=== PATIENT | female | born 1960 | race African-American/Black ===

== ENCOUNTER 2018-06-04 10:55 | Outpatient (CLI) | payer OTHER | END 2018-06-04 10:56 | disposition home or self-care (01) | LOC: BICMAMMO 10:55 | PROVIDERS: ATTEND Family Medicine | DX: Z12.31 Encounter for screening mammogram for malignant neoplasm of breast (principal) | CPT/HCPCS: 77067 ==

== ENCOUNTER 2019-06-06 09:57 | Outpatient (CLI) | payer OTHER ==
--- NOTE | 2019-06-06 11:07 | MMO ---
Bilateral MAMMO Bilat Screen [id number]. CLINICAL HISTORY: Patient is 59 years old and is seen for screening. The patient has no family history of breast cancer. The patient has no personal history of cancer. VIEWS: The views performed were: bilateral craniocaudal with tomosynthesis and bilateral mediolateral oblique with tomosynthesis. FILMS COMPARED: The present examination has been compared to prior imaging studies performed at [facility] on 08/04/2011, 08/14/2012 and 06/02/2017, and at [facility] on 01/10/2008. This study has been interpreted with the assistance of computer-aided detection. MAMMOGRAM FINDINGS: There are scattered fibroglandular densities. There are no suspicious masses, suspicious calcifications, or new areas of architectural distortion. IMPRESSION: THERE IS NO MAMMOGRAPHIC EVIDENCE OF MALIGNANCY. A ROUTINE FOLLOW-UP MAMMOGRAM IN 1 YEAR IS RECOMMENDED. THE RESULTS OF THIS EXAM WERE SENT TO THE PATIENT. ACR BI-RADS Category 1 - Negative MAMMOGRAPHY NOTE: 1. A negative mammogram report should not delay a biopsy if a dominant of clinically suspicious mass is present. 2. Approximately 10% to 15% of breast cancers are not detected by mammography. 3. Adenosis and dense breasts may obscure an underlying neoplasm. Reported by: CAMMIE MCFARLANE MD Electonically Signed: [id number]
== END 2019-06-06 09:58 | disposition home or self-care (01) ==
LOC: BICMAMMO 09:57
PROVIDERS: ATTEND Family Medicine
DX: Z12.31 Encounter for screening mammogram for malignant neoplasm of breast (principal)
CPT/HCPCS: 77063; 77067

== ENCOUNTER 2019-06-25 12:03 | Emergency (ER) | payer OTHER ==
[~2019-06-25 12:03] MED LIST: ISOVUE-370 76%-LOCM 1 ML ONE
[2019-06-25 12:40] LABS: #Eosinphils 0.1 thou/uL (0.0-0.7); #Lymphocytes 1.6 thou/uL (1.20-3.40); #Monocytes 0.5 thou/uL (0.11-0.59); #Neutrophils 4.5 thou/uL (1.40-6.50); %Basophils 0.4 % (0.0-1.0); %Eosinophils 0.8 % (0.0-10.0); %Lymphocytes 24.4 % (21.0-51.0); %Neutrophils 66.5 % (42.0-75.0); Hemoglobin 12.9 g/dL (12.0-16.0); Mean Corpuscular HGB CONC 31.7 g/dL (32.0-36.0); Mean Corpuscular Hemoglobin 26.1 pg (27.0-31.0); Mean Corpuscular Volume 82.3 fL (78.0-98.0); Mean Platelet Volume 7.4 fL (7.4-10.4); Platelet Count 275 thou/uL (130-400); RBC Distribution Width 13.3 % (11.5-14.5); Red Blood Cell (RBC) Count 4.95 mill/uL (4.20-5.40); White Blood Cell (WBC) Count 6.7 thou/uL (4.8-10.8)
[2019-06-25 13:04] LABS: Bilirubin Negative (Negative); Blood, Urine Negative (Negative); Clarity Clear (Clear); Glucose, Urine (Dipstick) 200 mg/dL (Negative); Leukocyte 25 Leu/uL (Negative); Nitrite Negative (Negative); Protein, Urine (Dipstick) Negative (Neg-Trace); RBC/HPF 0-3 HPF (0-3); Squamous Epithelial 0-3 HPF (0-3); Urobilinogen Normal mg/dL (Less than 2)
[2019-06-25 13:08] LABS: ALT (SGPT) 13 U/L (8-55); AST (SGOT) 15 U/L (5-34); Albumin 4.2 g/dL (3.5-5.0); Alkaline Phosphatase 116 U/L (40-110); Anion Gap 12 mmol/L (10-20); BUN (Urea Nitrogen) 8 mg/dL (9.8-20.1); Bilirubin, Total 0.4 mg/dL (0.2-1.2); Calc. Creatinine Clearance 0 mL/min (70-130); Calcium 11.2 mg/dL (7.8-10.44); Carbon Dioxide 28 mmol/L (22-29); Chloride 99 mmol/L (98-107); Estimated GFR-MDRD 78; Globulin 3.6 g/dL (2.4-3.5); Glucose 167 mg/dL (70-105); Lipase 164 U/L (8-78); Potassium 4.1 mmol/L (3.5-5.1); Protein, Total 7.8 g/dL (6.0-8.3); Sodium 135 mmol/L (136-145)
[2019-06-25 13:26] LABS: Bacteria/HPF Rare-Few HPF (None Seen)
[2019-06-25] MEDS ORDERED: Ondansetron PF 4 MG/2 ML Vial ONE (13:32)
[2019-06-25] MEDS ORDERED: Morphine 4 MG/ML VIAL ONE (13:32)
--- NOTE | 2019-06-25 14:05 | CT ---
CT ABDOMEN AND PELVIS WITH IV CONTRAST: HISTORY: Abdominal pain. Left lower quadrant pain. FINDINGS: The lung bases are clear. The liver, spleen, pancreas and adrenal glands are normal. No calcified gal lstones are seen. There are cysts in the right kidney. There is cortical scarring in the inferior kei e of the left kidney. No free air, free fluid, or lymphadenopathy is seen in the abdomen or pelvis. The small bowel loops a re not abnormally dilated. A normal appearing appendix is present. No pericolonic inflammatory change s are seen. There are vascular calcifications without evidence of aneurysmal dilatation of the abdominal aorta. D egenerative changes are seen in the spine. A small hiatal hernia is present. IMPRESSION: No acute process. POS: OFF
== END 2019-06-25 15:45 | disposition home or self-care (01) ==
LOC: ERS 12:03
DX: R10.32 Left lower quadrant pain (principal); E11.9 Type 2 diabetes mellitus without complications; E78.5 Hyperlipidemia, unspecified; I10 Essential (primary) hypertension; Z86.73 Personal history of transient ischemic attack (TIA), and cerebral infarction without residual deficits; Z79.82 Long term (current) use of aspirin
CPT/HCPCS: 36415; 74177; 80053; 81003; 81015; 83690; 85025; 96374; 96375; J2270; J2405; Q9966

== ENCOUNTER 2022-06-08 15:50 | Outpatient (CLI) | payer OTHER | END 2022-06-08 15:51 | disposition home or self-care (01) | LOC: BICRAD 15:50 | PROVIDERS: ATTEND Family Medicine | DX: M17.11 Unilateral primary osteoarthritis, right knee (principal); M25.551 Pain in right hip; M25.572 Pain in left ankle and joints of left foot; M77.32 Calcaneal spur, left foot; M79.89 Other specified soft tissue disorders; Z96.651 Presence of right artificial knee joint ==

== ENCOUNTER 2022-12-09 08:14 | Outpatient (CLI) | payer OTHER | END 2022-12-09 08:15 | disposition home or self-care (01) | LOC: BICMAMMO 08:14 | PROVIDERS: ATTEND Family Medicine | DX: Z12.31 Encounter for screening mammogram for malignant neoplasm of breast (principal) | CPT/HCPCS: 77067 ==

== ENCOUNTER 2024-03-29 18:29 | Emergency (ER) | payer OTHER | END 2024-03-29 19:09 | disposition home or self-care (01) | LOC: ERS 18:29 | DX: M54.12 Radiculopathy, cervical region (principal); I10 Essential (primary) hypertension | CPT/HCPCS: 99282 ==